=== PATIENT | female | born 1980 | race Caucasian/White ===

== ENCOUNTER → 2016-08-05 | Outpatient (CLI) | payer OTHER ==
[~2016-08-05] MED LIST: BCPILLS; ESCI10TA17 PO; MULT-506; PRT/20 PO; RANI300T2 PO; SYN200 PO
[2016-08-05 09:55] LABS: BLOOD UREA NITROGEN 14 mg/dl (7-18); BUN/CREATININE RATIO 15.8 (10-20); CARBON DIOXIDE 28 mmol/L (21-32); CHLORIDE 110 mmol/L (98-107); CHOLESTEROL 189 mg/dl (0-200); CREATININE 0.87 mg/dl (0.60-1.20); GLUCOSE 87 mg/dl (70-99); POTASSIUM 4.2 mmol/L (3.5-5.1); SODIUM 142 mmol/L (136-145)
[2016-08-05 10:06] LABS: CHOLESTEROL/HDL RATIO 4.4; HDL CHOLESTEROL 43 mg/dl; LDL CHOLESTEROL CALCULATED 127 mg/dl; TRIGLYCERIDES 94 mg/dl (0-150); VERY LOW DENSITY LIPOPROT CALC 19 mg/dl
== END | disposition home or self-care (01) ==
LOC: C.LAB1850 07:19
PROVIDERS: ATTEND Internal Medicine Geriatric Medicine
DX: Z00.00 Encounter for general adult medical examination without abnormal findings (principal); E03.9 Hypothyroidism, unspecified; R73.9 Hyperglycemia, unspecified

== ENCOUNTER → 2016-09-22 | Outpatient (CLI) | payer OTHER | END | disposition home or self-care (01) | LOC: C.LAB1850 16:47 | PROVIDERS: ATTEND Internal Medicine Geriatric Medicine | DX: E03.9 Hypothyroidism, unspecified (principal) ==

== ENCOUNTER → 2017-03-10 | Outpatient (CLI) | payer OTHER | END | disposition home or self-care (01) | LOC: C.LAB1850 12:59 | PROVIDERS: ATTEND Physician Assistant | DX: E03.9 Hypothyroidism, unspecified (principal); R53.83 Other fatigue ==

== ENCOUNTER → 2017-04-01 | Outpatient (CLI) | payer OTHER ==
[~2017-04-01] MED LIST changes: +ALBU18002 INH; +BCPILLS PO; +ERGO500011 PO; +HYDR-5688 PO; +LEVO200T6 PO; +LEVO25TA5 PO; +LXP10 PO; -MULT-506; +MULT-506 PO; +PANT40TA2 PO; +QVRINH80 INH; +RANI300T PO
== END | disposition home or self-care (01) ==
LOC: C.PAPS 09:34
PROVIDERS: ATTEND Obstetrics & Gynecology
DX: Z12.4 Encounter for screening for malignant neoplasm of cervix (principal)

== ENCOUNTER 2017-04-02 20:22 | Emergency (ER) | payer OTHER ==
[~2017-04-02] VITALS: Ht 167.6 cm; Wt 165.0 kg
[~2017-04-02 20:22] MED LIST changes: -ALBU18002 INH; -BCPILLS PO; -ERGO500011 PO; -HYDR-5688 PO; -LEVO200T6 PO; -LEVO25TA5 PO; -LXP10 PO; -MULT-506 PO; -PANT40TA2 PO; -QVRINH80 INH; -RANI300T PO
[2017-04-02 20:25] VITALS: Ht 167.6 cm; Wt 165.0 kg
[2017-04-02] MEDS ORDERED: PROPARACAINE HCL 0.5% OP SOLN 15 ML BTL OP STA (20:29)
[2017-04-02] MEDS ORDERED: NORCO 5/325MG HOME PACK PO ONE (20:45)
[2017-04-02] MEDS ORDERED: CIPROFLOXACIN HCL 0.3% OP SOLN 2.5 ML BTL OP ONE (20:45)
[2017-04-02] MEDS ORDERED: HYDR-5688 PO (20:52)
[2017-04-02 21:05] VITALS: BP 135/89; PULSE 84; TEMP 36.7; O2SAT 100
[2017-04-02] MEDS ORDERED: LXP10 PO (21:07)
[2017-04-02] MEDS ORDERED: PANT40TA2 PO (21:07)
[2017-04-02] MEDS ORDERED: LEVO25TA5 PO (21:07)
[2017-04-02] MEDS ORDERED: QVRINH80 INH (21:07)
[2017-04-02] MEDS ORDERED: ERGO500011 PO (21:07)
[2017-04-02] MEDS ORDERED: BCPILLS PO (21:07)
[2017-04-02] MEDS ORDERED: RANI300T PO (21:07)
[2017-04-02] MEDS ORDERED: LEVO200T6 PO (21:07)
[2017-04-02] MEDS ORDERED: ALBU18002 INH (21:09)
[2017-04-02] MEDS ORDERED: MULT-506 PO (21:09)
--- NOTE | 2017-04-02 23:02 | EMERGENCY ROOM VISIT NOTE ---
ED Visit Note First contact with patient: 20:29 Chief Complaint: I have something in my right eye. History of Present Illness: Ms. Mariee a 37-year-old white female who ambulates into the ED complaining of a foreign body sensation in the right eye. Patient reports approximately one hour ago she was watching TV and started experiencing a foreign body sensation in the right eye. Since that time she reports she is flushed her eyes with water multiple times and has been holding her eyelid closed with her fingers to reduce her pain. Currently patient is describing a stinging sensation under the upper eyelid. She rates her discomfort 7/10. Her pain is nonradiating. She has not identified any aggravating factors related to the pain. She does report she has mild relief of her discomfort when she is holding her eyelids closed with her fingers. She has not taken any medications for pain prior to arrival at the hospital. Associated with her pain she reports she is mildly light sensitivity and she's had an increase in tearing. She denies fevers, chills, sweats, skin eruptions, skin color changes, headache , visual changes, floaters, flashing lights, contact use, previous significant eye diseases/surgeries. Review of Systems: As noted above in history of present illness. 5 body systems were reviewed and found to be negative as noted above. Past Medical History: Asthma, bronchitis, pneumonia, gastroenteritis, GERD, status post tonsillectomy, adenoidectomy and unspecified left knee surgery. Current Medications: control, multivitamins, Synthroid, Lexapro, Zantac, Protonix. Allergies to Medications: Antivert: Allergic medications, clindamycin, Hycodan, dicyclomine, homatropine. Social History: Patient is currently employed; she feels safe in her home environment; she denies tobacco use and admits to alcohol use. Tetanus Immunization Status: Patient reports up-to-date. Physical Examination: Vital Signs: Date Time Temp Pulse Resp B/P (MAP) Pulse Ox O2 Delivery O2 Flow Rate FiO2 04/02/17 21:05 36.7 84 18 135/89 100 04/02/17 20:25 36.7 82 18 187/97 99 Room Air GENERAL: 37-year-old female in mild to moderate distress due to pain, nontoxic- appearing, afebrile and hemodynamically stable. NEUROLOGICAL: Awake, alert and oriented to person, place and time. Answering questions appropriately and following commands. Normal gait. Good hand eye coordination. SKIN: Warm, dry and pink. No soft tissue eruptions or trauma noted. HEENT: Atraumatic and normocephalic. No eyelid or orbital erythema or edema. PERRLA. EOMI. right sclera is mildly erythematous. Conjunctivae is normal without drainage. No foreign bodies noted under the eyelids are embedded in the cornea. The anterior chamber is clear. Visual acuity right 20/30 with corrective lenses, left 20/25 with corrective lenses. Under slit lamp examination no foreign bodies were noted. Patient does have an abrasion over the lateral aspect of the cornea that starts at the 10 o'clock position and goes circumferentially to the 4 o'clock position. Additionally there are multiple small punctate uptakes of dye consistent with abrasions over the rest of the eye. ED Course: Patient is assessed as noted above. Patient's medication list was reviewed. Alcaine was used to anesthetize the ice for examination. Patient was offered pain medication and refused. Patient is educated about today's findings and instructed on her treatment plan ; she verbalizes understanding and agreement with this plan. Clinical Impression: Right corneal abrasion. Disposition: Patient discharged home in stable condition; prior to departure she was reassessed and subjectively reported she was feeling better and rated her discomfort 2/10. Plan: Patient was prescribed Ciloxan ophthalmic solution encouraged use 2 drops in the right eye every 4 hours while awake for 5 days. Patient was encouraged to alternate ibuprofen and [place] for pain every 3 hours; she was given appropriate narcotic precautions her name was checked on the state database and no red flags were noted. Patient was encouraged return the ED in 36-48 hours for recheck. Patient is encouraged return ED for uncontrolled pain, fevers, vomiting, visual changes, headaches or any new/concerning symptoms.
== END 2017-04-02 21:05 | disposition home or self-care (01) ==
LOC: C.EDB 20:24 → C.EDD 21:05
DX: S05.01XA Injury of conjunctiva and corneal abrasion without foreign body, right eye, initial encounter (principal); X58.XXXA Exposure to other specified factors, initial encounter; J45.909 Unspecified asthma, uncomplicated; K21.9 Gastro-esophageal reflux disease without esophagitis

== ENCOUNTER → 2017-06-09 | Outpatient (CLI) | payer OTHER ==
[~2017-06-09] MED LIST changes: +ALBU18002 INH; -BCPILLS; +BCPILLS PO; +ERGO500011 PO; -ESCI10TA17 PO; +HYDR-5688 PO; +LEVO200T6 PO; +LEVO25TA5 PO; +LXP10 PO; +MULT-506 PO; +PANT40TA2 PO; -PRT/20 PO; +QVRINH80 INH; +RANI300T PO; -RANI300T2 PO; -SYN200 PO
== END | disposition home or self-care (01) ==
LOC: C.LAB1850 16:00
PROVIDERS: ATTEND Internal Medicine Geriatric Medicine
DX: E55.9 Vitamin D deficiency, unspecified (principal)

== ENCOUNTER → 2017-11-11 | Outpatient (CLI) | payer OTHER ==
[~2017-11-11] MED LIST changes: +BECL80AE7 INH; -HYDR-5688 PO; -QVRINH80 INH
== END | disposition home or self-care (01) ==
LOC: C.LAB1850 16:08
PROVIDERS: ATTEND Physician Assistant Medical
DX: E03.9 Hypothyroidism, unspecified (principal); E55.9 Vitamin D deficiency, unspecified

== ENCOUNTER 2018-06-05 10:47 | Inpatient (IN) ==
[2018-06-05] MEDS ORDERED: DEXAMETHASONE **PF** INJ 10 MG/ML VIAL IV ONE (11:30)
[2018-06-05] MEDS ORDERED: SODIUM CHLORIDE 0.9% 1000ML 1,000 ML IV ONE (11:30)
[2018-06-05] MEDS ORDERED: KETOROLAC TROMETHAMINE 15 MG/ML VIAL IV STA (11:30)
[2018-06-05] MEDS ORDERED: DiphenhydrAMINE HCL 50 MG/ML VIAL IV STA (11:30)
[2018-06-05] MEDS ORDERED: PROMETHAZINE HCL 6.25 MG in SODIUM CHLORIDE 0.9% 50 ML IV STA (11:30)
[2018-06-05] MEDS ORDERED: ACETAMINOPHEN 1,000 MG/100 ML VIAL IV STA (11:30)
[2018-06-05] MEDS ORDERED: PROMETHAZINE 12.5 MG/50.5 ML NSS IV ONE (11:42)
[2018-06-05 12:23] LABS: Hematocrit (blood only) 40.3 % (37-47); Hemoglobin 12.5 g/dL (12.0-16.0); Mean Corpuscular Volume 91.2 fL (80-100); Mean Platelet Volume 11.8 fL (7.4-10.4); Platelet Count 216 K/uL (130-400); RDW Coefficient of Variation 14.7 % (11.5-14.5); RDW Standard Deviation 49.5 fL (36.4-46.3); Red Blood Count 4.42 M/uL (4.2-5.4); White Blood Count 13.09 K/uL (4.8-10.8)
[2018-06-05 12:42] LABS: BUN Creatinine Ratio 16.1 (10-20); Calcium 8.6 mg/dl (8.5-10.1); Est GFR (African American) 99.3; Est GFR (Non-African American) 85.7; Potassium 3.9 mmol/L (3.5-5.1)
[2018-06-05 12:45] LABS: Pregnancy Test, Serum Negative (Negative)
[2018-06-05 12:52] LABS: T4 Free Thyroxine 1.56 ng/dl (0.8-1.6)
--- NOTE | 2018-06-05 13:12 | Magnetic Resonance Report ---
MRI OF THE BRAIN WITHOUT CONTRAST CLINICAL HISTORY: Severe headache with dizziness and left-sided numbness. COMPARISON STUDY: None. FINDINGS: Sagittal T1, axial diffusion, proton density and T2 weighted axial, coronal FLAIR, and axial T1-weigh moy images were acquired. No intra or extra-axial mass lesions are visualized There are foci of restricted water diffusion involving the right thalamus and right medial temporal l obe. The findings are consistent with acute/subacute infarct. There is no evidence of ventricular dilatation. Proton density T2-weighted and FLAIR images reveal foci of increased FLAIR signal within the right th alamus and right medial temporal lobe consistent with the acute/subacute infarct visualized on diffus ion-weighted images.. There are no abnormal flow voids. IMPRESSION: 1. Acute/subacute infarct involving the right thalamus and right medial temporal lobe Electronically signed by: Eros Aviles M.D. 06/05/2018 1:10 PM
[2018-06-05] MEDS ORDERED: ASPIRIN CHEW 324 MG PO STA (13:20)
--- NOTE | 2018-06-05 13:47 | History & Physical Report ---
Date of Service June 05, 2018 Assessment & Plan (1) Acute CVA (cerebrovascular accident): 38 y/o F Hx GERD, Migraine headaches, morbid obesity. Presents with a headache and numbness on the L side of her body. She administered Imitrex at home which did not alleviate her symptoms. A CT on arrival to the ER confirmed an acute/subacute infarct involving the right thalamus and right medial temporal lobe. She had not c/o weakness but has a clear L pronator drift on exam. 1) CVA - this is likely migraine-related as she does not have additional risk factors aside from perhaps her weight. She is placed on ASA. She should likely avoid Imitrex going forward. A CTA of the head and neck in addition to a neurology consult is pending. 2) Migraine MCDANIEL - imoproved with IV Acetaminophen - placed on PRN Tramadol. Would avoid vasoconstrictors and NSAIDS at present. Steroids may be an option if needed as she is not hypertensive. 3) GERD - cont PPI/H2 Full code - Heparin prophylaxis Total time for this admit including review of labs, meds, imaging, records - discussion with pt and ER attending - 37 min History of Present Illness Chief Complaint: L numbness, headache Primary Care Provider: APARNA Lee 38 y/o F Hx GERD, Migraine headaches, morbid obesity. Presents with a headache and numbness on the L side of her body. She administered Imitrex at home which did not alleviate her symptoms. A CT on arrival to the ER confirmed an acute/ subacute infarct involving the right thalamus and right medial temporal lobe. She had not c/o weakness but has a clear L pronator drift on exam. PMH: 1) GERD 2) Morbidly obese - BMI > 60 3) Migraine headaches - states she has an average of only 2 headaches/yr Social: Does not smoke, rarely drinks - employed as [employer] MACHINE for [employer] Family: Mother is alive and wll Father due to pancreatic CA No CAD/ CVD in family Allergies Allergy/AdvReac Type Severity Reaction Status Date / Time hydrocodone Allergy Severe Hallucinati Verified 06/05/18 13:33 ons clindamycin Allergy Mild UNK Unverified 06/05/18 13:33 homatropine Allergy Mild UNSURE Unverified 06/05/18 13:33 dicyclomine Allergy Unknown Mental Verified 06/05/18 13:33 changes acetaminophen [From Percocet] AdvReac Unknown Nausea Unverified 06/05/18 13:33 oxycodone [From Percocet] AdvReac Unknown Nausea Unverified 06/05/18 13:33 ANTICHOLINERGIC Allergy Mild UNSURE Uncoded 06/05/18 13:33 Home Medications Home Medications Medication Instructions Recorded Confirmed Type cholecalciferol (vitamin D3) 5,000 unit PO DAILY 06/05/18 06/05/18 History [Vitamin D3] escitalopram oxalate 10 mg PO DAILY 06/05/18 06/05/18 History evening primrose oil 500 mg PO DAILY 06/05/18 06/05/18 History fish,saf,flx,brg oils-O3,6,9#2 1 tab PO DAILY 06/05/18 06/05/18 History [Vrtm-Rnae-Mjyubu Oil] levothyroxine 50 mcg PO DAILY 06/05/18 06/05/18 History levothyroxine 200 mg PO DAILY 06/05/18 06/05/18 History magnesium chloride [Slow-Mag] 143 mg PO BID 06/05/18 06/05/18 History multivitamin [Multiple Vitamins] 1 tab PO DAILY 06/05/18 06/05/18 History norethindrone ac-eth estradiol 1 tab PO DAILY 06/05/18 06/05/18 History [Microgestin 05/08 (21)] pantoprazole 40 mg PO BID 06/05/18 06/05/18 History ranitidine HCl 300 mg PO BID 06/05/18 06/05/18 History sumatriptan succinate [Imitrex] 50 mg PO DIRECTED PRN 06/05/18 06/05/18 History turmeric 400 mg PO DAILY 06/05/18 06/05/18 History vit C-s.jvpzwu-wrmuvh-fbvzp sd 1 tab PO DAILY 06/05/18 06/05/18 History [Tart Panda] Past Med/Surg History Social History Feels Safe at Home: Yes Smoking Status: Never smoker Review of Systems Gen: Denies fevers, night sweats, rigors, fatigue, malaise, weight loss/gain ENT: Denies congestion, throat pain, hearing loss Eyes: Denies acute visual changes CV: Denies CP, palpitations Pulmonary: Denies SOB, cough, wheezing GI: Denies N/V, diarrhea, constipation Neuro: BL headache with L sided subjective numbenss Musculoskeletal: Denies joint pain, inflammation Endocrine: Denies polydipsia, polyuria Skin: Denies acute rashe or ulcers Physical Exam 2 Vital Signs (Past 24 Hours): Last Vital Signs Temp 36.8 C 06/05/18 10:56 Pulse 73 06/05/18 12:57 Resp 20 06/05/18 12:57 BP 134/98 06/05/18 12:57 Pulse Ox 97 06/05/18 12:57 Physical Exam: General: Pleasant, overweight yet agile young female - AAO x 3 - no distress ENT: No erythema or exudates, no thrush Eyes: KYRA, EOMI Head and neck: Normocephalic, atraumatic, No JVD, neck is supple. Chest/heart: Nontender, S1,2, RRR, no murmurs, no gallops Lungs: CTAB, no wheezing or crackles Abdomen: Nontender, nondistended, BS+ Neuro: AAO x 3, speech is clear, numbness is largely subjective and not present on exam, there is a clear pronator drift on the L, coordination is intact BL although there is a subtle difference with greater ease on the R Musculoskeletal: No joint inflammation, muscle tenderness, FROM Skin: No acute rashes or ulcers Extremities: No clubbing, cyanosis, edema Results & Data Diagnostic Findings MRI brain: acute/subacute infarct involving the right thalamus and right medial temporal lobe
[2018-06-05] MEDS ORDERED: OPTIRAY 320 125ml IV PRN (14:03)
--- NOTE | 2018-06-05 14:10 | CT Scan Report ---
CT angio neck with con CLINICAL HISTORY: Acute stroke COMPARISON STUDY: No previous studies for comparison. TECHNIQUE: CT angiography was performed from the aortic arch to the skull base. MIP imaging was perfo rmed. The patient was scanned in a dynamic helical fashion during intravenous administration of 119 c c of Optiray 320. A dose lowering technique was utilized adhering to the principles of ALARA. CT DOSE: 1321.20 mGy.cm Technique: CT angiogram of the carotid and vertebral arteries was obtained using intravenous contrast and 3-D reconstruction. NASCET criteria was utilized. Findings: The images somewhat degraded due to the patient's large body habitus. The right carotid revealed no evidence of aneurysm and no evidence of dissection. There is no evidenc e of hemodynamic significant stenosis. The left carotid revealed no evidence of hemodynamic significant stenosis. There is no evidence of an eurysm. There is no evidence of dissection. There is a dominant left vertebral artery. The right vertebral artery is a tiny vessel. IMPRESSION: No evidence of hemodynamically significant carotid or vertebral artery stenosis. No evidence of disse ction. Electronically signed by: Eros Aviles M.D. 06/05/2018 2:09 PM
--- NOTE | 2018-06-05 14:13 | CT Scan Report ---
CT angio head wo/w CT DOSE: CLINICAL HISTORY: Acute stroke TECHNIQUE: Unenhanced images were obtained through the head. CT angiography was then performed in a d ynamic helical fashion during intravenous administration 1 through 19 cc of Optiray 320. MIP imaging was performed. A dose lowering technique was utilized adhering to the principles of ALARA. COMPARISON STUDY: MRI the brain dated 06/05/2018 FINDINGS: On the noncontrast images, no intra or extra-axial mass lesions are visualized. There is a 13 mm righ t thalamic hypodensity consistent with a subacute infarct. There is no acute hemorrhage. There is no hydrocephalus. There is no midline shift. CT angiographic images reveal a dominant left vertebral artery. There are no lesion suspicious for an eurysm. No major intracranial branch occlusions are visualized. The dural venous sinuses appear paten t. IMPRESSION: 1. Subacute right thalamic infarct 2. No evidence of acute hemorrhage 3. No evidence of aneurysm. No evidence of major intracranial branch occlusion. Electronically signed by: Eros Aviles M.D. 06/05/2018 2:12 PM
--- NOTE | 2018-06-05 15:16 | Emergency Department Note ---
Entered by Will Amador acting as a scribe for Pal Ace MD History of Present Illness General Chief complaint: Headache Stated complaint: MIGRAINE,NUMBNESS Time Seen by Provider: 06/05/18 11:21 Source: patient History of Present Illness Onset (ago): day(s) (yesterday at 17:00) Location: head Pain Consistency: + other (persistent) Current Pain Intensity: 6 (or 7) Quality: + other (headaches) Relieved By: not by medication (Advil, Tylenol, Imitrex) Associated symptoms: + other (denies falls, urinary or visual symptoms, or falls ); no fever/chills The patient is a 38 year old female with a history of migraines who presents to the Emergency Room with complaints of a persistent headache beginning yesterday at 17:00. The patient reports that she first felt lightheaded, and she then developed a headache. She also developed numbness and tingling down the back of both arms, legs, and primarily the left side of her face. The patient reports that her headache is primarily in the right side of the forehead and the middle of the back of her head. She notes that she feels like my brain is a bowl of water wrapped in cotton that is sloshing around. She states that some of her symptoms are similar to prior migraines, but her symptoms have been persistent and did not improve with Advil and Tylenol last night or with Imitrex this morning. She rates her pain between 6-7/10. She denies visual symptoms, falls, fevers, recent illness, urinary symptoms, concerns of , cardiac history , or problems with her spleen/kidney. She states that she usually has one or two migraines every year. She states that they are sometimes triggered with dark chocolate, but she has not eaten any recently. She reports a history of hypothyroidism treated with medication, stating that she has not missed any doses. Home Medications Home Medications Medication Instructions Recorded Confirmed Type cholecalciferol (vitamin D3) 5,000 unit PO DAILY 06/05/18 06/05/18 History [Vitamin D3] escitalopram oxalate 10 mg PO DAILY 06/05/18 06/05/18 History evening primrose oil 500 mg PO DAILY 06/05/18 06/05/18 History fish,saf,flx,brg oils-O3,6,9#2 1 tab PO DAILY 06/05/18 06/05/18 History [Flge-Tlqh-Phhaif Oil] levothyroxine 50 mcg PO DAILY 06/05/18 06/05/18 History levothyroxine 200 mg PO DAILY 06/05/18 06/05/18 History magnesium chloride [Slow-Mag] 143 mg PO BID 06/05/18 06/05/18 History multivitamin [Multiple Vitamins] 1 tab PO DAILY 06/05/18 06/05/18 History norethindrone ac-eth estradiol 1 tab PO DAILY 06/05/18 06/05/18 History [Microgestin 05/08 (21)] pantoprazole 40 mg PO BID 06/05/18 06/05/18 History ranitidine HCl 300 mg PO BID 06/05/18 06/05/18 History sumatriptan succinate [Imitrex] 50 mg PO DIRECTED PRN 06/05/18 06/05/18 History turmeric 400 mg PO DAILY 06/05/18 06/05/18 History vit C-s.ebglia-ffswrd-pmswk sd 1 tab PO DAILY 06/05/18 06/05/18 History [Tart Panda] Allergies Allergy/AdvReac Type Severity Reaction Status Date / Time hydrocodone Allergy Severe Hallucinati Verified 06/05/18 13:33 ons clindamycin Allergy Mild UNK Unverified 06/05/18 13:33 homatropine Allergy Mild UNSURE Unverified 06/05/18 13:33 dicyclomine Allergy Unknown Mental Verified 06/05/18 13:33 changes acetaminophen [From Percocet] AdvReac Unknown Nausea Unverified 06/05/18 13:33 oxycodone [From Percocet] AdvReac Unknown Nausea Unverified 06/05/18 13:33 ANTICHOLINERGIC Allergy Mild UNSURE Uncoded 06/05/18 13:33 Past Med/Surg History Medical History Asthma (Chronic) GERD (gastroesophageal reflux disease) (Chronic) Hypothyroidism (Chronic) Migraines (Chronic) Family History Other Cancer Diabetes Hypertension Social History Current Living Situation: Parent Current Living Situation Comment: lives with mother Other Information That Helps Us Care for You: No Feels Safe at Home: Yes Safety Concerns: Feels Safe At This Time Smoking Status: Never smoker Do You Dip or Chew Tobacco: No Second Hand Exposure: No Tobacco Cessation Education Requested by Patient: No Hx Alcohol Use: Yes Alcohol Intake Frequency: other Hx Substance Use: No Beliefs That Will Affect Care: Baptist Baptist Beliefs: no blood transfusions , Spiritual Spiritual Healthcare Practices: no blood transfusions and Cultural Cultural Beliefs: no blood transfusions Preferred Language: Yemeni Communication Ability: Effective Automatic Pilot Mechanic Required: No Review of Systems See HPI for pertinent positives & negatives. and A total of 10 systems reviewed and were otherwise negative Physical Exam Vital Signs Vital Signs - 24 hr 06/05/18 10:56 06/05/18 12:25 06/05/18 12:57 Temperature 36.8 C Temperature Source Oral Sepsis Recent Fever Within 48 Hours No Sepsis New/Unexplained Change in Mental Status No Sepsis Action Taken by Nursing No Action Required Pulse Rate 70 Pulse Rate [Left Finger] 68 73 Pulse Rhythm [Left Finger] Regular Regular Pulse Strength [Left Finger] Normal Normal Respiratory Rate 20 20 20 Respiratory Effort / Characteristics Non-Labored Spontaneous Non-Labored Spontaneous Respiratory Depth Normal Normal Respiratory Pattern Regular Regular Blood Pressure 129/78 Blood Pressure [Right Arm] 131/100 134/98 Blood Pressure Mean 95 Blood Pressure Mean [Right Arm] 110 110 Blood Pressure Position [Right Arm] Sitting Sitting Pulse Oximetry 97 96 97 Oxygen Delivery Method Room Air Room Air Room Air Oxygen Delivery Method [Left] 06/05/18 14:00 06/05/18 15:06 06/05/18 15:40 Temperature 37.1 C Temperature Source Oral Sepsis Recent Fever Within 48 Hours Sepsis New/Unexplained Change in Mental Status Sepsis Action Taken by Nursing Pulse Rate 78 Pulse Rate [Left Finger] 74 78 Pulse Rhythm [Left Finger] Regular Regular Pulse Strength [Left Finger] Normal Normal Respiratory Rate 20 20 18 Respiratory Effort / Characteristics Non-Labored Spontaneous Non-Labored Respiratory Depth Normal Normal Respiratory Pattern Regular Regular Blood Pressure 147/92 H Blood Pressure [Right Arm] 157/98 H 162/90 H Blood Pressure Mean Blood Pressure Mean [Right Arm] 117 114 Blood Pressure Position [Right Arm] Sitting Lying Pulse Oximetry 96 96 95 Oxygen Delivery Method Room Air Room Air Room Air Oxygen Delivery Method [Left] Room Air GENERAL: Patient is in no acute distress. HEENT: No acute trauma, normocephalic atraumatic, mucous membranes moist, no nasal congestion, no scleral icterus. NECK: No stridor, no adenopathy, no meningismus, trachea is midline. LUNGS: Clear to auscultation bilaterally, no wheeze, no rhonchi, breath sounds equal. HEART: Without murmurs gallops or rubs, regular rate and rhythm. ABDOMEN: Soft, nontender, bowel sounds positive, no hernias, no peritonitis. EXTREMITIES: No cyanosis or edema, full range of motion of all the joints without pain or difficulty, no signs for acute trauma. NEUROLOGIC: Oriented x 3, no acute motor or sensory deficits, no focal weakness. No cerebellar deficits or pronator drift. No facial droop or speech slur. SKIN: No rash, no jaundice, no diaphoresis. Course 1126: Past medical records reviewed. The patient was evaluated in room B2, and a complete history and physical examination were performed. 1316: I updated the patient on her imaging results. 1318: I consulted Dr. Rama Medina Neurology. He recommends hospitalization, a CTA of the head and neck, and administration of aspirin. 1340: I consulted Dr. Ornelas [facility] Hospitalist. He will reevaluate the patient for hospitalization. Consultations Consultation #1: I consulted Dr. Rama Medina Neurology. He recommends hospitalization, a CTA of the head and neck, and administration of aspirin. Time: 13:18 Consultation #2: I consulted Dr. Ornelas [facility] Hospitalist. He will reevaluate the patient for hospitalization. Time: 13:40 Administered Medications Heparin Sodium (Porcine) (Heparin Sodium (Porcine)) 5,000 units SQ Q8H JACKIE Stop: 07/05/18 16:59 Last Admin: 06/05/18 17:15 Dose: 5,000 units Potassium Chloride/Dextrose/Sod Cl (D5nss + 20meq Kcl) 20 meq in 1,000 mls @ 100 mls/hr IV .Q10H JACKIE Stop: 06/06/18 01:59 Last Admin: 06/05/18 16:33 Dose: 100 mls/hr Ioversol (Optiray 320 125ml) 119 ml IV ONCE PRN PRN Reason: Interaction Checking Stop: 06/09/18 14:02 Last Admin: 06/05/18 14:04 Dose: 119 ml Discontinued Medications Aspirin (Aspirin) 324 mg PO NOW STA Stop: 06/05/18 13:21 Last Admin: 06/05/18 13:29 Dose: 324 mg Dexamethasone Sodium Phosphate (Decadron Pf) 10 mg IV NOW ONE Stop: 06/05/18 11:31 Last Admin: 06/05/18 11:52 Dose: 10 mg Diphenhydramine HCl (Benadryl) 25 mg IV NOW STA Stop: 06/05/18 11:31 Last Admin: 06/05/18 11:51 Dose: 25 mg Acetaminophen (Ofirmev) 1,000 mg in 100 mls @ 400 mls/hr IV NOW STA Stop: 06/05/18 11:44 Last Infusion: 06/05/18 12:10 Dose: Admin: 06/05/18 11:52 Dose: 400 mls/hr Promethazine HCl 6.25 mg/ (Sodium Chloride) 50.25 mls @ 201 mls/hr IV NOW STA Stop: 06/05/18 11:44 Last Infusion: 06/05/18 12:07 Dose: Admin: 06/05/18 11:52 Dose: 201 mls/hr Sodium Chloride (Nss 1000ml) 1,000 mls @ 999 mls/hr IV .Q1H1M ONE Stop: 06/05/18 12:30 Last Infusion: 06/05/18 13:27 Dose: Admin: 06/05/18 11:54 Dose: 999 mls/hr Ketorolac Tromethamine (Toradol) 15 mg IV NOW STA Stop: 06/05/18 11:31 Last Admin: 06/05/18 11:53 Dose: 15 mg Promethazine HCl (Phenergan) Confirm Administered Dose 12.5 mg IV .STK-MED ONE Stop: 06/05/18 11:43 Last Admin: 06/05/18 11:53 Dose: Not Given Medical Decision Making Differential Diagnosis Differential diagnosis: migraine headaches, complex migraine, intracranial bleeding, stroke, intracranial mass, thyroid disorder, , dehydration, electrolyte imbalance Medical Records Attestation: I reviewed the patient's medical records. Home Medications Current Medication List: was personally reviewed by me Laboratory Data Attestation: I reviewed the patient's lab results. Result diagrams: 06/05/18 12:05 06/05/18 12:05 Lab Results 06/05/18 06/05/18 06/05/18 Range/Units 12:05 12:05 12:05 WBC 13.09 H (4.8-10.8) K/uL RBC 4.42 (4.2-5.4) M/uL Hgb 12.5 (12.0-16.0) g/dL Hct 40.3 (37-47) % MCV 91.2 (80-100) fL MCH 28.3 (25-34) pg MCHC 31.0 L (32-36) g/dL RDW Std Deviation 49.5 H (36.4-46.3) fL RDW Coeff of Kelley 14.7 H (11.5-14.5) % Plt Count 216 (130-400) K/uL MPV 11.8 H (7.4-10.4) fL PT (9.0-12.0) Seconds INR (0.9-1.1) Sodium 139 (136-145) mmol/L Potassium 3.9 (3.5-5.1) mmol/L Chloride 105 (98-107) mmol/L Carbon Dioxide 28 (21-32) mmol/L Anion Gap 6.0 (3-11) BUN 14 (7-18) mg/dl Creatinine 0.85 (0.6-1.2) mg/dl Est Cr Clr Drug Dosing 145.0 ml/min Est GFR ( Amer) 99.3 Est GFR (Non-Af Amer) 85.7 BUN/Creatinine Ratio 16.1 (10-20) Glucose 77 (70-99) mg/dl POC Glucose (70-99) Calcium 8.6 (8.5-10.1) mg/dl TSH Cancelled 0.947 Free T4 Cancelled 1.56 HCG, Qual (Negative) 06/05/18 06/05/18 06/05/18 Range/Units 12:05 12:05 16:26 WBC (4.8-10.8) K/uL RBC (4.2-5.4) M/uL Hgb (12.0-16.0) g/dL Hct (37-47) % MCV (80-100) fL MCH (25-34) pg MCHC (32-36) g/dL RDW Std Deviation (36.4-46.3) fL RDW Coeff of Kelley (11.5-14.5) % Plt Count (130-400) K/uL MPV (7.4-10.4) fL PT 10.5 (9.0-12.0) Seconds INR 1.0 (0.9-1.1) Sodium (136-145) mmol/L Potassium (3.5-5.1) mmol/L Chloride (98-107) mmol/L Carbon Dioxide (21-32) mmol/L Anion Gap (3-11) BUN (7-18) mg/dl Creatinine (0.6-1.2) mg/dl Est Cr Clr Drug Dosing ml/min Est GFR ( Amer) Est GFR (Non-Af Amer) BUN/Creatinine Ratio (10-20) Glucose (70-99) mg/dl POC Glucose 113 H (70-99) Calcium (8.5-10.1) mg/dl TSH Free T4 HCG, Qual Negative (Negative) Imaging Data Radiologist's Impression: Radiology results as stated below per my review and the radiologist's interpretation: MRI OF THE BRAIN WITHOUT CONTRAST CLINICAL HISTORY: Severe headache with dizziness and left-sided numbness. COMPARISON STUDY: None. FINDINGS: Sagittal T1, axial diffusion, proton density and T2 weighted axial, coronal FLAIR, and axial T1-weighted images were acquired. No intra or extra-axial mass lesions are visualized There are foci of restricted water diffusion involving the right thalamus and right medial temporal lobe. The findings are consistent with acute/subacute infarct. There is no evidence of ventricular dilatation. Proton density T2-weighted and FLAIR images reveal foci of increased FLAIR signal within the right thalamus and right medial temporal lobe consistent with the acute/subacute infarct visualized on diffusion-weighted images.. There are no abnormal flow voids. IMPRESSION: 1. Acute/subacute infarct involving the right thalamus and right medial temporal lobe Electronically signed by: Eros Aviles M.D. 06/05/2018 1:[address] angio head wo/w CT DOSE: CLINICAL HISTORY: Acute stroke TECHNIQUE: Unenhanced images were obtained through the head. CT angiography was then performed in a dynamic helical fashion during intravenous administration 1 through 19 cc of Optiray 320. MIP imaging was performed. A dose lowering technique was utilized adhering to the principles of ALARA. COMPARISON STUDY: MRI the brain dated 06/05/2018 FINDINGS: On the noncontrast images, no intra or extra-axial mass lesions are visualized. There is a 13 mm right thalamic hypodensity consistent with a subacute infarct. There is no acute hemorrhage. There is no hydrocephalus. There is no midline shift. CT angiographic images reveal a dominant left vertebral artery. There are no lesion suspicious for aneurysm. No major intracranial branch occlusions are visualized. The dural venous sinuses appear patent. IMPRESSION: 1. Subacute right thalamic infarct 2. No evidence of acute hemorrhage 3. No evidence of aneurysm. No evidence of major intracranial branch occlusion. Electronically signed by: Eros Aviles M.D. 06/05/2018 2:[address] angio neck with con CLINICAL HISTORY: Acute stroke COMPARISON STUDY: No previous studies for comparison. TECHNIQUE: CT angiography was performed from the aortic arch to the skull base. MIP imaging was performed. The patient was scanned in a dynamic helical fashion during intravenous administration of 119 cc of Optiray 320. A dose lowering technique was utilized adhering to the principles of ALARA. CT DOSE: 1321.20 mGy.cm Technique: CT angiogram of the carotid and vertebral arteries was obtained using intravenous contrast and 3-D reconstruction. NASCET criteria was utilized. Findings: The images somewhat degraded due to the patient's large body habitus. The right carotid revealed no evidence of aneurysm and no evidence of dissection. There is no evidence of hemodynamic significant stenosis. The left carotid revealed no evidence of hemodynamic significant stenosis. There is no evidence of aneurysm. There is no evidence of dissection. There is a dominant left vertebral artery. The right vertebral artery is a tiny vessel. IMPRESSION: No evidence of hemodynamically significant carotid or vertebral artery stenosis. No evidence of dissection. Electronically signed by: Eros Aviles M.D. 06/05/2018 2:09 PM Blood Pressure Blood Pressure Findings: Elevated blood pressure Blood Pressure Disposition: further management by hospitalist [facility] Narrative There is a mild leukocytosis at around 13,000, this could be consistent with infection or the stress of her current situation. No worrisome anemia. No significant electrolyte abnormality or kidney failure. The patient appeared to be in a euthyroid state. testing was negative. Brain MRI showed a subacute infarct to the right thalamus and right temporal lobe. No acute bleed seen. CT angiography of the brain and neck did not show any evidence for dissection, aneurysm or clot within a vessel. The patient was initially treated for the possibility of a migraine headache. She received IV saline, IV Phenergan, IV Toradol, IV Benadryl, IV Decadron and IV Tylenol. She was resting comfortably. When the findings of subacute stroke were seen, she was given oral aspirin. I did speak with neurology. The patient needs a stroke workup and hospital stay. The patient is out of the window for any TPA-her symptoms began over 12 hours ago. She does not require transfer for clot removal. She has no focal motor deficits on exam, no speech slur. She has subjective numbness only at this point. I did speak to case management, the patient is aware of all her findings, the on -call hospitalist was consulted. Impression & Plan Acute CVA (cerebrovascular accident), Headache, Extremity numbness, Facial numbness Discharge Plan Visit Data *Final* Discharge Date/Time: 06/05/18 15:06 Chief Complaint: Headache Stated Complaint: MIGRAINE,NUMBNESS ED Provider: Pal Ace Discharge Problem: Acute CVA (cerebrovascular accident), Headache, Extremity numbness, Facial numbness Patient Disposition: Admitted As Inpatient Discharge Instructions Interventions: ED Discharge Assessment Last Done: 06/05/18 15:06 The scribe's documentation has been prepared under my direction and personally reviewed by me in its entirety. I confirm that the note above accurately reflects all work, treatment, procedures, and medical decision making performed by me.
[2018-06-05] MEDS ORDERED: TRAMADOL HCL 50 MG TABLET PO PRN (15:40)
[2018-06-05] MEDS ORDERED: ONDANSETRON INJ 2 MG/ML 2 ML VIAL IV PRN (15:40)
[2018-06-05] MEDS ORDERED: ACETAMINOPHEN 325 MG TAB PO PRN (15:40)
[2018-06-05] MEDS ORDERED: POLYETHYLENE (MIRALAX) 17 GM PACK PO PRN (15:40)
[2018-06-05] MEDS ORDERED: PHARMACIST DISCHARGE MED REC CONSULT PRN (15:40)
[2018-06-05] MEDS ORDERED: ALUMINUM/MAGNESIUM SUSP 30 ML UDC PO PRN (15:40)
[2018-06-05] MEDS ORDERED: MAGNESIUM HYDROXIDE SUSP 30 ML UDC PO PRN (15:40)
[2018-06-05] MEDS ORDERED: D5NSS + 20MEQ KCL 20 MEQ/1,000 ML BAG IV SCH (16:00)
[2018-06-05 16:11] LABS: Prothrombin Time 10.5 Seconds (9.0-12.0)
[2018-06-05] MEDS: HEPARIN SOD 5,000 UNIT/0.5 ML VIAL SQ SCH (17:15)
[2018-06-05] MEDS: PANTOprazole 40 MG TAB PO SCH (20:25)
[2018-06-05] MEDS: MAGNESIUM CHLORIDE 64MG DELAYED REL TAB PO SCH (20:25)
[2018-06-06] MEDS: HEPARIN SOD 5,000 UNIT/0.5 ML VIAL SQ SCH ×2 (00:13→09:58)
[2018-06-06 05:48] LABS: Basophils # (auto) 0.01 K/uL (0-0.2); Basophils % (auto) 0.1 %; Hematocrit (blood only) 39.5 % (37-47); Hemoglobin 12.2 g/dL (12.0-16.0); Immature Granulocytes # (auto) 0.04 K/uL (0.00-0.02); Immature Granulocytes % (auto) 0.3 %; Lymphocytes # (auto) 3.49 K/uL (1.2-3.4); Lymphocytes % (auto) 24.3 %; Mean Corpuscular Hgb Conc 30.9 g/dL (32-36); Mean Corpuscular Volume 90.4 fL (80-100); Mean Platelet Volume 11.6 fL (7.4-10.4); Monocytes % (auto) 5.6 %; Neutrophils % (auto) 69.7 %; Platelet Count 221 K/uL (130-400); RDW Coefficient of Variation 14.7 % (11.5-14.5); RDW Standard Deviation 48.6 fL (36.4-46.3); Red Blood Count 4.37 M/uL (4.2-5.4); White Blood Count 14.34 K/uL (4.8-10.8)
[2018-06-06 06:16] LABS: BUN Creatinine Ratio 19.5 (10-20); Calcium 8.3 mg/dl (8.5-10.1); Creatinine Clr Calc Pharmacy 164.3 ml/min; Est GFR (African American) 115.6; Est GFR (Non-African American) 99.7; Potassium 4.1 mmol/L (3.5-5.1)
[2018-06-06] MEDS ORDERED: LEVOTHYROXINE SODIUM 200 MCG TABLET PO SCH (06:30)
[2018-06-06] MEDS ORDERED: LEVOTHYROXINE SODIUM 50 MCG TABLET PO SCH (06:30)
[2018-06-06 06:51] LABS: Estimated Average Glucose 126 mg/dl
[2018-06-06 07:45] VITALS: PULSE 67
--- NOTE | 2018-06-06 08:50 | Neurology Consultation ---
Date of Consultation June 06, 2018 Assessment & Plan (1) Acute CVA (cerebrovascular accident): Patient has evidence of acute right thalamic and right medial temporal small strokes. Their size and location suggest either small vessel ischemia or stroke secondary to vasospasm with complicated migraine. Patient did have a migrainous headache with this event and still has some aura and headache left over. The left-sided dysesthesias are typical of a right thalamic stroke. The patient does have other risk factors for stroke including a some elevated blood pressure readings, mildly high glucose/hemoglobin A1c, and a mildly elevated lipids. She has never been a smoker. On MRI, she does not have any the evidence of old small vessel ischemic disease and CT angiography of the head neck were unremarkable as well. On neurologic examination she has some dysesthesias to touch on the left side as noted above with no other focal neurologic deficits, encephalopathy, or meningeal signs. (2) Headache: Patient has a history of migraine and other headaches intermittently. Fortunately, over the last few years, the patient has been getting them only 2 or 3 times a year and they are controlled with as needed medication. The patient has been on an oral hormonal agent (Microgestin) for several years. She feels her headaches are less frequent on this product them before she went on it. She is taking this hormonal product for regulation of symptomatology during menses. (3) Depression with anxiety: Patient has a history of depression and anxiety fairly well controlled with low-dose escitalopram over the last 10 years. Her mood is worse now that she has learned she has had a small stroke but she is doing well otherwise. Recommendations: 1. Echocardiogram 2. Continue 81 mg aspirin tablet daily. 3. Monitor blood pressure. Given her vasospasm/migraine/stroke and some elevated blood pressure readings this hospitalization, might drug of choice would be verapamil ER 180 mg once daily for vaso spasm prevention and the blood pressure control. 4. Lower glucose, ideally the getting hemoglobin A1c to 5.6 or less. 5. Consider a statin for the dyslipidemia. She would be a high-dose statin candidate in theory. 6. Diet and exercise will be a mainstay of treatment for this patient. She needs to slowly and appropriately lose weight with exercise/conditioning. Doing this alone may help her blood pressure, glucose, and lipids. 7. No work for this week. Consider going back the next week part-time if able but no heavy exertion or working for the next 4 weeks to allow her stroke to heal. 8. I can follow up as an outpatient if desired. 9. Patient has a history of vitamin-D deficiency in the past and some arthralgias secondary to this. Checking a vitamin-D level would be reasonable and adjusting accordingly. 10. Because of her stroke, I would like to discontinue her oral hormonal pill Microgestin. Estrogen is a risk factor for stroke. Overall, I spent a total 120 minutes with this case including review of records , review of MRI films (including with the patient), direct evaluation the patient at bedside, and discussion of the case with the patient at bedside, clinical staff, and Dr. Stout including differential diagnosis and treatment options. History of Present Illness Reason for Consultation: Patient is a 38-year-old, who I was asked to see the request of Dr. Ornelas, for neurologic consultation regarding stroke. Requesting Physician: Dr. Ornelas Attending Physician: Jos Stout MD History of Present Illness This patient has a longstanding history of migraine headaches since her teen years. In her 20s, she would get headaches much more frequently, but over the last few years she has been getting 2 or 3 migraines per month. She will get any type of headache about once a month. Typically, she will get an aura consisting of left-sided visual "spinning prisms which travel towards the center of her vision. This visual symptomatology will last about 15 minutes and then typically resolve and a bifrontal pounding headache would initiate. She can get photophobia and sonophobia with her headaches, but no nausea or vomiting. Headache would last anywhere from 30-45 minutes with medication. She would tend to take ibuprofen, or Fioricet early on. If the headache persisted she would take 50 mg sumatriptan orally. These treatments with variably help. Patient has a history of hypothyroidism since 2000 and depression and anxiety since 2007. 10 mg escitalopram helps her mood. She has asthma which flares up with exertion and GI symptoms including gastroesophageal reflux disease and irritable bowel syndrome which relatively stable. In the afternoon of June 04, around 1615, she started getting lightheadedness. This was not a true vertigo but there was some woozy feelings associated. This lasted about 45 minutes and then resolved around 1700 with a bifrontal pounding headache initiating. She did not note any nausea, vomiting, photophobia or sonophobia. She took ibuprofen and acetaminophen which did not help much. Somewhere between [id number] she noted numbness and tingling in the left face, arm, trunk, and leg. This would wax and wane some but it persisted throughout the rest of the evening. She woke up on June 05 and continued to have the significant headache and left-sided dysesthesias. She also noted that both her pupils were very big. Since things were not improving she decided to go to the emergency room. She arrived to the emergency room June 05 at 1056 with a temperature 36.8 , pulse of 70 and regular, respiratory rate 20, blood pressure 129/78, and O2 saturation 97%. In the emergency room her neurologic examination is largely unremarkable with no focal neurologic signs. She did have some dysesthesias on the left side however. She continued to have the right-sided headache of a pressure/pounding nature. Her blood pressure increased to 131/101 57/98 in the ER. MRI of the brain showed small right thalamic and right medial temporal lobe acute strokes. She did not have a old small vessel ischemic disease of any significant nature. CT angiography of the head and neck were unremarkable and had no vessel anomalies or stenoses. CBC showed elevated white count without anemia. Chemistry profile was unremarkable although glucose was 113 and hemoglobin A1c was 6.0. TSH was normal at 0.9. Fasting lipid profile revealed cholesterol 201, LDL of 133, and triglycerides 116. Her admitting physician found a left pronator drift and no other focal findings. This morning her blood pressure was 107/71 and her rhythm is sinus in the 70s. Patient still has a right frontal throbbing headache of about a 3 or 4/10. Her tingling on the left side is slightly better than yesterday. She still has some varying spinning prisms in her visual juarez off to the left. She denies double vision or blurry vision, chest pain or abdominal pain, incontinence or confusion. Allergies Allergy/AdvReac Type Severity Reaction Status Date / Time hydrocodone Allergy Severe Hallucinati Verified 06/05/18 13:33 ons clindamycin Allergy Mild UNK Unverified 06/05/18 13:33 homatropine Allergy Mild UNSURE Unverified 06/05/18 13:33 dicyclomine Allergy Unknown Mental Verified 06/05/18 13:33 changes acetaminophen [From Percocet] AdvReac Unknown Nausea Unverified 06/05/18 13:33 oxycodone [From Percocet] AdvReac Unknown Nausea Unverified 06/05/18 13:33 ANTICHOLINERGIC Allergy Mild UNSURE Uncoded 06/05/18 13:33 Home Medications Home Medications Medication Instructions Recorded Confirmed Type cholecalciferol (vitamin D3) 5,000 unit PO DAILY 06/05/18 06/05/18 History [Vitamin D3] escitalopram oxalate 10 mg PO DAILY 06/05/18 06/05/18 History evening primrose oil 500 mg PO DAILY 06/05/18 06/05/18 History fish,saf,flx,brg oils-O3,6,9#2 1 tab PO DAILY 06/05/18 06/05/18 History [Oxgr-Iucp-Omzjvo Oil] levothyroxine 50 mcg PO DAILY 06/05/18 06/05/18 History levothyroxine 200 mg PO DAILY 06/05/18 06/05/18 History magnesium chloride [Slow-Mag] 143 mg PO BID 06/05/18 06/05/18 History multivitamin [Multiple Vitamins] 1 tab PO DAILY 06/05/18 06/05/18 History norethindrone ac-eth estradiol 1 tab PO DAILY 06/05/18 06/05/18 History [Microgestin 05/08 (21)] pantoprazole 40 mg PO BID 06/05/18 06/05/18 History ranitidine HCl 300 mg PO BID 06/05/18 06/05/18 History sumatriptan succinate [Imitrex] 50 mg PO DIRECTED PRN 06/05/18 06/05/18 History turmeric 400 mg PO DAILY 06/05/18 06/05/18 History vit C-s.upxprh-ovwlcc-qoxct sd 1 tab PO DAILY 06/05/18 06/05/18 History [Tart Panda] Patient History Medical History Asthma (Chronic) GERD (gastroesophageal reflux disease) (Chronic) Hypothyroidism (Chronic) Migraines (Chronic) [place] teeth removed Surgical History History of tonsillectomy and adenoidectomy Social History Current Living Situation: Parent Current Living Situation Comment: lives with mother current occupational status: employed current occupation: PRESCHOOL ASSISTANT with [employer] Other Information That Helps Us Care for You: No Feels Safe at Home: Yes Safety Concerns: Feels Safe At This Time Smoking Status: Never smoker Do You Dip or Chew Tobacco: No Second Hand Exposure: No Tobacco Cessation Education Requested by Patient: No Hx Alcohol Use: Yes Alcohol type: beer and hard liquor Alcohol Intake Frequency : other Alcohol Intake Frequency Comment: Two beers or mixed drinks per month only. Hx Substance Use: No Beliefs That Will Affect Care: Rastafari Rastafari Beliefs: no blood transfusions , Spiritual Spiritual Healthcare Practices: no blood transfusions and Cultural Cultural Beliefs: no blood transfusions Preferred Language: Salvadorean Communication Ability: Effective Buckle Coverer Required: No Review of Systems Constitutional: no fever, no body aches, no fatigue and no weakness Eyes: + seeing flashes; no diplopia, no eye pain and no worsening vision Ear, Nose, Mouth, Throat: no ear pain, no tinnitus, no hearing loss and no dysphagia Respiratory: no cough and no dyspnea Cardiovascular: no chest pain, no dyspnea and no palpitations Gastrointestinal: no abdominal pain, no nausea and no vomiting Genitourinary (Female): no dysuria, no urinary frequency and no urinary incontinence Musculoskeletal: no back pain, no neck pain, no radicular pain, no myalgia, no muscle weakness and no muscle atrophy Integumentary: no rash and no lesions Neurologic: + tingling (Left side) and + numbness (Left side); no gait abnormality, no falls, no localized weakness, no generalized weakness, no tremor (s), no abnormal movements, no dizziness, no headache(s), no abnormal speech, no behavioral changes, no confusion and no memory loss Psychiatric: + depression (Secondary to new diagnosis); no abnormal sleep pattern, no anxiety, no difficulty concentrating, no confusion and no hallucinations Endocrine: no fatigue and no flushing Hematologic / Lymphatic: no easy bleeding and no easy bruising Allergy / Immunological: no urticaria Physical Exam 2 Vital Signs (Past 24 Hours): Last Vital Signs Temp 36.8 C 06/06/18 07:44 Pulse 67 06/06/18 07:44 Resp 18 06/06/18 07:44 BP 141/62 H 06/06/18 07:44 Pulse Ox 96 06/06/18 07:44 Physical Exam: The patient is right-handed. The patient is awake, alert, and attentive. Speech is normal without any aphasia or dysarthria. Mentation and thought processes are intact, with full orientation and normal fund of knowledge. Attention and concentration are normal. Mood and affect are normal and appropriate. General appearance and grooming are normal. Short and long-term memory are intact. The discs are sharp with positive venous pulsations bilaterally. There are no exudates, hemorrhages, or blood vessel changes seen. Pupils are 5 mm bilaterally and reactive to light. Extraocular eye muscles are intact without nystagmus. Visual acuity and visual juarez seem normal grossly to confrontation. There is decreased sensation to touch in the left V2 and V3 distributions compared to the right which is normal. The V1 is spared. Corneal reflexes are positive bilaterally. Facial strength and symmetry was normal bilaterally. Hearing seems intact grossly to voice and finger rub bilaterally. Palate moves well without asymmetry. There is normal sternocleidomastoid and trapezius ( shoulder shrug) strength bilaterally. Tongue is midline with good strength bilaterally. Neck has a full range of motion without discomfort. There are no cervical bruits bilaterally. There are no cranial or ocular bruits. Heart is without murmur. There is a regular rhythm and rate. Cervical, thoracic, and lumbar spine are nontender to palpation. Gait is narrow based, with good arm swing, turns, and stance. Balance is normal eyes open or closed. With outstretched arms there is no drift. There are no resting, postural, or action tremors. There is no ataxia with finger to nose testing. There is good facility in the hands. No other abnormal involuntary movements are noted. Motor strength is 5/5 diffusely in the arms bilaterally including deltoids, biceps, triceps, brachioradialis, wrist flexors and extensors, cork slabs sawyer, and intrinsic hand muscles. Motor strength is 5/5 diffusely in the legs bilaterally including hip flexors, quadriceps, hamstrings, gastrocnemius, tibialis anterior , tibialis posterior, and Peroneii muscles bilaterally. Toe extensors are normal and there is good bulk in the extensor digitorum brevis muscles bilaterally. The limbs have good tone without rigidity or spasticity. There is no atrophy noted in the muscles. Muscle bulk is normal, there is no tenderness to palpation , no myotonia to percussion, and no fasciculations seen. Sensory examination reveals decreased sensation to touch in the left arm, left side of the body and left leg compared to the right which is normal. Reflexes are 2/4 in the biceps, triceps, brachioradialis, quadriceps, and Achilles tendons bilaterally. Toes are downgoing with plantar stimulation bilaterally. Peripheral pulses are present and of normal quality distally in all 4 limbs. There is no peripheral edema noted in the limbs. Results & Data Diagnostic Findings MRI OF THE BRAIN WITHOUT CONTRAST CLINICAL HISTORY: Severe headache with dizziness and left-sided numbness. COMPARISON STUDY: None. FINDINGS: Sagittal T1, axial diffusion, proton density and T2 weighted axial, coronal FLAIR, and axial T1-weighted images were acquired. No intra or extra-axial mass lesions are visualized There are foci of restricted water diffusion involving the right thalamus and right medial temporal lobe. The findings are consistent with acute/subacute infarct. There is no evidence of ventricular dilatation. Proton density T2-weighted and FLAIR images reveal foci of increased FLAIR signal within the right thalamus and right medial temporal lobe consistent with the acute/subacute infarct visualized on diffusion-weighted images.. There are no abnormal flow voids. IMPRESSION: 1. Acute/subacute infarct involving the right thalamus and right medial temporal lobe Electronically signed by: Eros Aviles M.D. 06/05/2018 1:10 PM _ (1) Headache Headache chronicity pattern: unspecified pattern Headache type: unspecified Intractability: not intractable Qualified Code(s): R51 - Headache
[2018-06-06] MEDS ORDERED: ESCITALOPRAM OXALATE 10 MG TAB PO SCH (09:00)
[2018-06-06] MEDS ORDERED: ASPIRIN 325 MG ECTAB PO SCH (09:00)
[2018-06-06] MEDS ORDERED: PERFLUTREN LIPID MICROSPHERE (DEFINITY) IV ONE (09:44)
[2018-06-06] MEDS: MAGNESIUM CHLORIDE 64MG DELAYED REL TAB PO SCH (09:58)
[2018-06-06] MEDS: PANTOprazole 40 MG TAB PO SCH (09:58)
[2018-06-06 11:46] VITALS: BP 138/64; TEMP 97.7; O2SAT 99
[2018-06-06] MEDS ORDERED: STROKE PATIENT DISCHARGE STA (13:40)
--- NOTE | 2018-06-06 14:19 | Pharmacy Report ---
Pharmacist Stroke Counseling - Date of Service June 06, 2018 - Scope: Pharmacy has been consulted to provide medication discharge counseling for this patient admitted with CVA as per the Pharmacist Discharge Counseling for Stroke Patients Protocol. - Medications on Discharge: Home Medications Medication Instructions Recorded Confirmed cholecalciferol (vitamin D3) 5,000 unit PO DAILY 06/05/18 06/05/18 [Vitamin D3] escitalopram oxalate 10 mg PO DAILY 06/05/18 06/05/18 evening primrose oil 500 mg PO DAILY 06/05/18 06/05/18 fish,saf,flx,brg oils-O3,6,9#2 1 tab PO DAILY 06/05/18 06/05/18 [Qqol-Tolh-Zqpmdw Oil] levothyroxine 50 mcg PO DAILY 06/05/18 06/05/18 levothyroxine 200 mg PO DAILY 06/05/18 06/05/18 magnesium chloride [Slow-Mag] 143 mg PO BID 06/05/18 06/05/18 multivitamin [Multiple Vitamins] 1 tab PO DAILY 06/05/18 06/05/18 pantoprazole 40 mg PO BID 06/05/18 06/05/18 ranitidine HCl 300 mg PO BID 06/05/18 06/05/18 turmeric 400 mg PO DAILY 06/05/18 06/05/18 vit C-s.zhqzxt-pyhkbj-xfnvb sd 1 tab PO DAILY 06/05/18 06/05/18 [Tart Panda] New Rx's Medication Instructions Recorded aspirin [Aspir-] 81 mg PO DAILY #30 tab 06/06/18 atorvastatin 10 mg PO HS #30 tab 06/06/18 verapamil 180 mg PO DAILY #30 cap 06/06/18 - Action: The above medications, specifically ones for stroke treatment/prophylaxis, have been reviewed in detail with the patient and/or patient food products sales representative(s) prior to discharge. This includes indication, common adverse reactions, drug interactions, and medication administration. Medication counseling has been employed using the teach-back method to ensure understanding. - Outcome: The patient and/or patient food products sales representative(s) have demonstrated understanding of the medications. Please note, they are aware that the pharmacist will call them within 72 hours post-discharge to confirm that the appropriate medications are being taken and answer any further medication related questions the patient might have at that time. Contact information Individual to be contacted: Patient Phone number: [phone] Best time to call: [phone] Additional comments: * Patient is an HEAD OF ENGLISH and has good baseline understanding of medications * Statin therapy is new for her. Advised of the importance of this medication for not only lowering cholesterol but also as stroke prevention. Reviewed LFT monitoring and myopathy signs/symptoms and actions to be taken. * ASA therapy is new for her, reviewed monitoring for s/s bleeding, need to notify providers before dental and surgical procedures * Verapamil therapy is also new for her. Reviewed potential drop in BP and HR and s/s of both. Advised the PCP should be monitoring BP closely as lowering BP too aggressively immediately following stroke can be detrimental. Verapamil may also help with prevention of her migraines. * I advised against Imitrex use in the setting of recent CVA and this med may not be a good choice for abortive therapy. She states she plans on using Fioricet instead. * I also advised that estrogen supplement will increase one's stroke risk and that it appears they have advised her to stop taking this med as well. Thank you for allowing pharmacy to be involved in the care of this patient. Please call [phone] or [phone] with any additional questions
--- NOTE | 2018-06-06 17:42 | Discharge Summary ---
Date of Service June 06, 2018 Admission HPI Per Admitting Provider 38 y/o F Hx GERD, Migraine headaches, morbid obesity. Presents with a headache and numbness on the L side of her body. She administered Imitrex at home which did not alleviate her symptoms. A CT on arrival to the ER confirmed an acute/ subacute infarct involving the right thalamus and right medial temporal lobe. She had not c/o weakness but has a clear L pronator drift on exam. PMH: 1) GERD 2) Morbidly obese - BMI > 60 3) Migraine headaches - states she has an average of only 2 headaches/yr Social: Does not smoke, rarely drinks - employed as INSURANCE AGENCY MANAGER for [employer] Family: Mother is alive and wll Father due to pancreatic CA No CAD/ CVD in family Principal Diagnosis Stroke Discharge Exam Constitutional WD/WN, vitals as above + morbidly obese Eyes EOM intact bilaterally; no conjunctival abnormality ENMT external ear and nose normal, oropharynx normal Neck trachea midline, no thyromegaly normal visual inspection Respiratory normal respiratory effort, lungs clear to auscultation no respiratory distress Cardiovascular RRR, no murmur, no edema Gastrointestinal (Abdomen) Inspection/Auscultation: abdomen normal to inspection; abdomen not distended Musculoskeletal no cyanosis or clubbing, extremities motor strength 5/5 Skin no rashes, warm and dry Neurologic moves all extremities and awake Psychiatric Orientation: alert, oriented to person and cooperative Discharge Data Allergies Allergy/AdvReac Type Severity Reaction Status Date / Time hydrocodone Allergy Severe Hallucinati Verified 06/05/18 13:33 ons clindamycin Allergy Mild UNK Unverified 06/05/18 13:33 homatropine Allergy Mild UNSURE Unverified 06/05/18 13:33 dicyclomine Allergy Unknown Mental Verified 06/05/18 13:33 changes acetaminophen [From Percocet] AdvReac Unknown Nausea Unverified 06/05/18 13:33 oxycodone [From Percocet] AdvReac Unknown Nausea Unverified 06/05/18 13:33 ANTICHOLINERGIC Allergy Mild UNSURE Uncoded 06/05/18 13:33 Consultations 06/05/18 13:24 ED Decision to Admit Stat 06/05/18 15:40 Consult Case Management - Discharge Planning Routine Consult Neurology Routine Ordered Studies 06/05/18 11:30 MR brain wo con Stat 06/05/18 13:21 CT angio head wo/w Stat CT angio neck with con Stat Hospital Course (1) Acute CVA (cerebrovascular accident): Seen by neurology who felt this was a complex migraine picture. Stopped her oral contraceptive and started ASA 81mg, atorvastatin 10mg PO QHS, and verapamil ER 180mg daily. Echo showed right -> left shunt that could be a PFO or an ASD; however, patient did not want to stay for further testing and neurology felt the CVA was unlikely to be an embolic event. Will follow up outpatient. 2) Migraine MCDANIEL - improved with IV Acetaminophen - placed on PRN Tramadol. Would avoid vasoconstrictors and NSAIDS at present. Steroids may be an option if needed as she is not hypertensive. 3) GERD - cont PPI/H2 Total Time Total Time Spent Total Time Spent (In Minutes): 40 Total Time Includes: Examination of the Patient, Discharge Planning, Medication Reconciliation and Communication With Other Providers Discharge Plan Discharge Items Patient Disposition: Home - Self-Care Reason For Visit: CVA Discharge Diagnosis: Complex migraine with stroke Discharge Goals: Diagnostic testing and Improve disease control Activity: Resume your previous activity Exercise/Sports: Gradually increase as tolerated Non-emergency contact: Primary Care Provider, Shipping Hand and Neurologist Call non-emergency contact if: you have any medication questions and your symptoms worsen Follow-up/Referrals: Arias Pearl III, MD [Physician] - 07/01/18 9:40 am (Please, follow up at [facility] Neurology Office with Dr. Pearl's post production assistant, Nicolle Musa on WednesdayJuly 01 at 10:00 am (arrive 9:40 am) . *This office is located at [address] [place] [address] in [place]. If you need to change this appointment, call the office at [phone].) Niels Huang MD [Oral And Maxillofacial Surgery] - (Please follow up with Dr. Huang in 1-2 weeks to follow up on your echo results.) Patt Machado CRNP [Primary Care Provider] - 06/13/18 11:00 am (Please, follow up with aPtt BRAUN on WednesdayJune 13 at 11:00 am. *If you need to change this appointment, call the office at [phone].) Diet: Low Fat Addtl Provider Instructions: Ms. Mariee, you were admitted for headache and small stroke. You were seen by Dr. Pearl with recommendations to start a baby aspirin (81mg), a blood pressure medication, a statin medication (atorvastatin), and to stop your oral control pill. This will all help reduce your risk of further strokes. We also did an echo ( ultrasound) of your heart. This showed a shunt from the one side of your heart to the other. This can be normal (about 20-25% of the population has this issue ) or be a developmental issue. Dr. Pearl felt this was unlikely to be related to your stroke, but would like to see cardiology as an outpatient. Please return to the hospital with any further episodes of numbness, tingling, changes in strength or sensation, or other concerning signs. Risk Factors for Stroke: You can reduce your chances of stroke by working with your medical provider to adopt a healthy lifestyle. Some specific ways to lower your chance of stroke are: * If you are a smoker, now is the time to stop smoking cigarettes * If you are diabetic, improve the control of your blood sugars * Avoid excessive amounts of alcohol * Control high blood pressure * Lose weight if you are overweight * Be sure to lead an active lifestyle * Eat a healthy diet low in salt, cholesterol and fat You should know about other risk factors for stroke that you are unable to control. These include: * Age 55 years or older * Male gender * Certain racial groups: , or / * Family History of Stroke, Mini stroke or Heart Attack * Sickle Cell Disease Follow Up: It is important for you to keep your follow up appointments with your medical provider. Who to Call and When: Medical Emergencies: Call 911 immediately if you experience any of the following warning signs and symptoms of Stroke: * Sudden numbness or weakness of the face, arm or leg, especially on one side of the body * Sudden confusion, trouble speaking or understanding * Sudden trouble seeing in one or both eyes * Sudden trouble walking, dizziness, loss of balance or coordination * Sudden severe headache with no cause Do not delay calling 911 if you experience any warning signs or symptoms of a stroke. Delay in seeking medical attention may affect what treatments can be given to you. . Prescriptions: New atorvastatin 10 mg tablet 10 mg PO HS Qty: 30 RF: 0 aspirin [Aspir-81] 81 mg tablet,delayed release (DR/EC) 81 mg PO DAILY Qty: 30 RF: 0 verapamil 180 mg capsule,ext rel. pellets 24 hr 180 mg PO DAILY Qty: 30 RF: 0 Continue multivitamin [Multiple Vitamins] Tablet 1 tab PO DAILY RF: 0 evening primrose oil 500 mg Capsule 500 mg PO DAILY RF: 0 ranitidine HCl 300 mg tablet 300 mg PO BID RF: 0 levothyroxine 50 mcg tablet 50 mcg PO DAILY RF: 0 pantoprazole 40 mg tablet,delayed release (DR/EC) 40 mg PO BID RF: 0 levothyroxine 200 mcg tablet 200 mg PO DAILY RF: 0 escitalopram oxalate 10 mg tablet 10 mg PO DAILY RF: 0 vit C-s.hzazqq-papwwl-xvewn sd [Tart Panda] [id number] mg Capsule 1 tab PO DAILY RF: 0 cholecalciferol (vitamin D3) [Vitamin D3] 5,000 unit Tablet 5,000 unit PO DAILY RF: 0 fish,saf,flx,brg oils-O3,6,9#2 [Sqia-Lepy-Jwhkaz Oil] 421-344-771-50 mg Capsule 1 tab PO DAILY RF: 0 magnesium chloride [Slow-Mag] 71.5 mg Tablet,Delayed Release (Dr/Ec) 143 mg PO BID RF: 0 turmeric 400 mg Capsule 400 mg PO DAILY RF: 0 Discontinued sumatriptan succinate [Imitrex] 50 mg Tablet 50 mg PO DIRECTED PRN (Reason: Migraine Headache) RF: 0 norethindrone ac-eth estradiol [Microgestin 05/08 ()] 1-20 mg-mcg tablet 1 tab PO DAILY RF: 0 Stand-Alone Forms: [facility] Discharge Orders: Discharge Order (Routine); Ordered 06/06/18 Ordered By: Jos Stout Admission Data Admit Date/Time: 06/05/18 13:54 Attending Provider: Jos Stout Admit Provider: Dae Ornelas Primary Care Provider: Patt Machado I Other Providers: Dae Ornelas Emile Pierre III Service: Telemetry Other Interventions: Discharge Summary Assessment (RN) Last Done: 06/06/18 13:55
--- NOTE | 2018-06-10 12:36 | Pharmacy Report ---
Pharmacist Post D/C Phone Note - Phone Note: Date of phone call: June 10, 2018. Individual with whom pharmacist spoke to: VINAY MARKS The following questions were reviewed during the phone call with responses listed below each: Can you tell me the medications that you are currently taking as well as when and how you take each medication? -See Table Below When have you missed any doses of your medications? - NO What side effects are you having from your medications, specifically, the new medications you were started on? - NO What questions do you have about your medications? - NO What problems are you having obtaining your medications? - NO When is your next appointment with your primary care doctor? - Tuesday 06/13 Additional comments: - Confirmed that patient did stop Loestrin and Imitrex. No issues with new medications at this time. As per the Pharmacist Discharge Counseling for Stroke Patients Protocol, this phone call has been completed within 72 hours of discharge. Thank you for allowing us to be involved in the care of this patient. - Home Medications: Home Medications Medication Instructions Recorded Confirmed cholecalciferol (vitamin D3) 5,000 unit PO DAILY 06/05/18 06/05/18 [Vitamin D3] escitalopram oxalate 10 mg PO DAILY 06/05/18 06/05/18 evening primrose oil 500 mg PO DAILY 06/05/18 06/05/18 fish,saf,flx,brg oils-O3,6,9#2 1 tab PO DAILY 06/05/18 06/05/18 [Ladb-Fqrp-Sxatjs Oil] levothyroxine 50 mcg PO DAILY 06/05/18 06/05/18 levothyroxine 200 mg PO DAILY 06/05/18 06/05/18 magnesium chloride [Slow-Mag] 143 mg PO BID 06/05/18 06/05/18 multivitamin [Multiple Vitamins] 1 tab PO DAILY 06/05/18 06/05/18 pantoprazole 40 mg PO BID 06/05/18 06/05/18 ranitidine HCl 300 mg PO BID 06/05/18 06/05/18 turmeric 400 mg PO DAILY 06/05/18 06/05/18 vit C-s.bdjkrd-obclvx-lfukb sd 1 tab PO DAILY 06/05/18 06/05/18 [Tart Panda] New Rx's Medication Instructions Recorded aspirin [Aspir-] 81 mg PO DAILY #30 tab 06/06/18 atorvastatin 10 mg PO HS #30 tab 06/06/18 verapamil 180 mg PO DAILY #30 cap 06/06/18
== END 2018-06-06 14:45 | disposition home or self-care (01) | DRG 65 ==
LOC: ED 10:47 → SUATTDRO 13:54 → 2E 13:54